=== PATIENT | female | born 1960 | race Caucasian/White ===

== ENCOUNTER 2017-03-03 16:21 | Emergency (ER) | payer MEDICAID ==
[~2017-03-03] VITALS: Ht 162.6 cm; Wt 90.0 kg
[~2017-03-03 16:21] MED LIST: AMLO10TA80 PO; GABA-290 PO; HYDR-3282 PO; IBUP-1636 PO
[2017-03-03] MEDS ORDERED: IRON1CAP21 PO (16:28)
[2017-03-03] MEDS ORDERED: [UNRECOGNIZED DRUG - OTHER] (16:28)
[2017-03-03] MEDS ORDERED: METO50TA5 PO (16:28)
[2017-03-03] MEDS ORDERED: ACET1TAB14 GT (16:28)
[2017-03-03] MEDS ORDERED: SODIUM CHLORIDE 0.9% 1,000 ML IV ONE (17:08)
[2017-03-03] MEDS ORDERED: KETOROLAC 30MG/ML VIAL IV ONE (17:15)
[2017-03-03] MEDS ORDERED: METOCLOPRAMIDE HCL 10MG/2ML VIAL IV ONE (17:15)
[2017-03-03 17:27] LABS: BASOPHILS % 0.6 % (0.0-2.0); EOSINOPHILS % 0.6 % (0.0-5.0); HEMATOCRIT. 39.1 % (36.0-48.0); HEMOGLOBIN. 12.9 g/dL (12.0-16.0); LYMPHOCYTES % 22.5 % (20.0-50.0); MEAN CORPUSCULAR HEMOGLOBIN 27.2 pg (28.0-32.0); MEAN CORPUSCULAR VOLUME 82.4 fL (81.0-99.0); MEAN PLATELET VOLUME 8.3 fl (7.4-10.4); MONOCYTES % 6.4 % (2.0-8.0); NEUTROPHILS % 69.9 % (40.0-76.0); PLATELET 308 x1000/uL (130-400); RED BLOOD CELL COUNT 4.75 mill/uL (4.2-5.4); WHITE BLOOD COUNT 8.1 x1000/uL (4.5-11.0)
[2017-03-03 17:42] LABS: ALANINE AMINOTRANSFERASE 28 IU/L (13-61); ALBUMIN 3.7 g/dL (3.4-5.0); ANION GAP 15; CARBON DIOXIDE 24 mEq/L (21-32); CHLORIDE 103 mEq/L (98-107); INDEX HEMOLYSI 1 (1-3); INDEX ICTERIC 1 (1-4); INDEX LIPEMIC 1 (1-3); NT PRO B-TYPE NATRIURETIC PEP 58 pg/mL (5-125); UREA NITROGEN BLOOD 8 mg/dL (7-21); eGFR > 60 mL/min (>60)
[2017-03-03 18:56] VITALS: BP 111/76
== END 2017-03-03 19:03 | disposition home or self-care (01) ==
LOC: ER 17:13
DX: I10 Essential (primary) hypertension (principal); R51 Headache; F17.200 Nicotine dependence, unspecified, uncomplicated; Z90.710 Acquired absence of both cervix and uterus; Z79.899 Other long term (current) drug therapy
CPT/HCPCS: 36415; 71010; 80053; 83880; 85025; 93005; 96361; 96374; 96375; 99285; J1885; J2765; J7030; Z7610

== ENCOUNTER 2017-10-10 16:45 | Emergency (ER) | payer MEDICAID ==
[~2017-10-10] VITALS: Ht 160 cm; Wt 91.0 kg
[~2017-10-10 16:45] MED LIST changes: +ACET1TAB14 GT; +IRON1CAP21 PO; +METO-539 PO; +[UNRECOGNIZED DRUG - OTHER]
[2017-10-10 17:46] LABS: BASOPHILS % 1.2 % (0.0-2.0); EOSINOPHILS % 0.9 % (0.0-5.0); HEMATOCRIT. 40.5 % (36.0-48.0); LYMPHOCYTES % 26.8 % (20.0-50.0); MEAN CORPUSCULAR HEMOGLOBIN 29.3 pg (28.0-32.0); MEAN CORPUSCULAR VOLUME 84.9 fL (81.0-99.0); MONOCYTES % 5.3 % (2.0-8.0); NEUTROPHILS % 65.8 % (40.0-76.0); PLATELET 357 x1000/uL (130-400); RED BLOOD CELL COUNT 4.77 mill/uL (4.2-5.4); RED CELL DISTRIBUTION WIDTH 15.2 % (11.6-14.6)
[2017-10-10 17:54] LABS: CARBON DIOXIDE 24 mEq/L (21-32); CHLORIDE 98 mEq/L (98-107)
[2017-10-10 17:58] LABS: PARTIAL THROMBOPLASTIN TIME 30.5 sec (23.4-31.0); PROTHROMBIN TIME 10.1 sec (9.4-11.6)
[2017-10-10 18:01] LABS: TROPONIN I < 0.02 ng/mL (0.00-0.04)
[2017-10-10 22:59] LABS: CLARITY URINE CLOUDY (CLEAR); COLOR URINE YELLOW (YELLOW); KETONES URINE NEGATIVE (NEGATIVE); LEUKOCYTE ESTERASE URINE TRACE (NEGATIVE); NITRITE URINE NEGATIVE (NEGATIVE); OCCULT BLOOD URINE NEGATIVE (NEGATIVE); PROTEIN URINE 1+ (NEGATIVE); UROBILINOGEN URINE 0.2 E.U./dL (0.2-1.0)
[2017-10-10 23:31] VITALS: BP 138/85
== END 2017-10-10 23:32 | disposition home or self-care (01) ==
LOC: ER 17:53
DX: I10 Essential (primary) hypertension (principal); R42 Dizziness and giddiness; I51.7 Cardiomegaly; Z90.710 Acquired absence of both cervix and uterus
CPT/HCPCS: 36415; 71010; 80053; 81001; 83690; 84484; 85025; 85610; 85730; 93005; 99285; Z7610

== ENCOUNTER 2017-12-12 11:31 | Emergency (ER) | payer MEDICAID ==
[~2017-12-12] VITALS: Ht 160 cm; Wt 91.0 kg
[2017-12-12] MEDS ORDERED: KETOROLAC 60MG/2ML VIAL IM ONE (14:00)
[2017-12-12 14:04] VITALS: BP 132/84
== END 2017-12-12 14:50 | disposition home or self-care (01) ==
LOC: ER 12:22
DX: M54.5 Low back pain (principal); G89.29 Other chronic pain
CPT/HCPCS: 96372; 99283; J1885

== ENCOUNTER 2019-01-04 09:56 | Emergency (ER) | payer MEDICARE, MEDICAID ==
[~2019-01-04] VITALS: Ht 157.5 cm; Wt 91.0 kg
[2019-01-04] MEDS ORDERED: METHOCARBAMOL 500MG TABLET PO ONE (11:00)
[2019-01-04] MEDS ORDERED: ACETAMINOPHEN 325MG TABLET PO ONE (11:00)
[2019-01-04] MEDS ORDERED: KETOROLAC 30MG/ML VIAL IM ONE (12:30)
[2019-01-04 13:03] VITALS: BP 134/82
== END 2019-01-04 13:04 | disposition home or self-care (01) ==
LOC: ER 10:11
DX: S00.03XA Contusion of scalp, initial encounter (principal); M54.9 Dorsalgia, unspecified; F12.10 Cannabis abuse, uncomplicated; I10 Essential (primary) hypertension; F17.200 Nicotine dependence, unspecified, uncomplicated; Z90.710 Acquired absence of both cervix and uterus; Z98.890 Other specified postprocedural states; Z79.899 Other long term (current) drug therapy; W10.8XXA Fall (on) (from) other stairs and steps, initial encounter; Y93.89 Activity, other specified; Y92.89 Other specified places as the place of occurrence of the external cause; Y99.8 Other external cause status
CPT/HCPCS: 99284; J1885